=== PATIENT | female | born 1965 | race Caucasian/White ===

== ENCOUNTER 2017-07-13 14:03 | Emergency (ER) | payer OTHER ==
[~2017-07-13] VITALS: Ht 165.1 cm; Wt 84.0 kg
[~2017-07-13 14:03] MED LIST: CYCL-36 PO; DICL75 PO; ESTR1TAB12 PO; LEXA5TAB PO; MEDR2.5T19 PO
[2017-07-13 14:45] VITALS: BP 141/78; PULSE 91; RESP 16; TEMP 98.5; O2SAT 96
[2017-07-13] MEDS ORDERED: MEDR5TAB3 PO (15:55)
[2017-07-13] MEDS ORDERED: ESTR1 PO (15:55)
[2017-07-13 16:08] LABS: BILIRUBIN, URINE NEG (NEG); BLOOD, URINE TRACE (NEG); GLUCOSE,URINE NEG (NEG); KETONE, URINE NEG (NEG); NITRITE,URINE NEG (NEG); URINE LEUKOCYTE ESTERASE NEG (NEG)
[2017-07-13] MEDS ORDERED: PRED50 PO (16:38)
--- NOTE | 2017-07-13 16:39 | PD ---
HPI . 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 Onset was last night. Pain is exacerbated by movement. She states that she has a couple of "pressure points" on her right lower extremity which are also painful. He states that she felt like this once before when she had ovarian cysts. She states that she has not recently been sexually active. She denies any urinary tract symptoms such as dysuria or urgency. She has not noted a vaginal discharge. PFSH Past Medical History Diminished Hearing: No Hypertension: Yes Reproductive: Yes Tetanus Vaccination: < 5 Years Influenza Vaccination: No ?: Not LMP: 08/2016 Past Surgical History Appendectomy: Yes Gynecologic Surgery: Yes Social History Alcohol Use: Yes Tobacco Use: Yes Substance Use: No Allergies-Medications (Allergen,Severity, Reaction): Coded Allergies: NSAIDS (Non-Steroidal Anti-Inflamma (Verified Adverse Reaction, Unknown, ) Reported Meds & Prescriptions Reported Meds & Active Scripts Active Prednisone 50 Mg Tab 50 Mg PO DAILY 5 Days Reported Medroxyprogesterone Acetate 5 Mg Tab 2.5 Mg PO DAILY Start day 21 Estrace (Estradiol) 1 Mg Tab 1 Mg PO DAILY Review of Systems Except as stated in HPI: all other systems reviewed are Neg Physical Exam Narrative GENERAL: Awake and alert and in no acute distress. SKIN: Warm and dry. HEAD: Normocephalic/atraumatic. EYES: Pupils are equal. Extraocular movements are intact. NECK: Normal range of motion. RESPIRATORY: Nonlabored respirations. ABDOMEN: Soft and nontender. : Benign pelvic exam, but speculum and bimanual. MUSCULOSKELETAL: Tender in the right groin with pain on flexion of the right hip. NEUROLOGICAL: Nonfocal. PSYCHIATRIC: Appropriate mood and affect. Data Data Last Documented VS Vital Signs Date Time Temp Pulse Resp B/P (MAP) Pulse Ox O2 Delivery O2 Flow Rate FiO2 07/13/17 14:45 98.5 91 16 141/78 (99) 96 Orders Orders Gc And Chlamydia Pcr (07/13/17 15:59) Wet Prep Profile (07/13/17 15:59) Urinalysis - C+S If Indicated (07/13/17 15:59) Ed Urine Pregnancytest Poc (07/13/17 15:59) Labs Laboratory Tests Test 07/13/17 15:50 07/13/17 16:25 Urine Color YELLOW Urine Turbidity CLEAR Urine pH 6.0 Urine Specific [place] 1.010 Urine Protein NEG mg/dL Urine Glucose (UA) NEG mg/dL Urine Ketones NEG mg/dL Urine Occult Blood TRACE Urine Nitrite NEG Urine Bilirubin NEG Urine Leukocyte Esterase NEG Urine RBC 0-3 /hpf Urine Squamous Epithelial Cells 0-5 /hpf Microscopic Urinalysis Comment CULT NOT INDICATED Clue Cells (Wet Prep) PRESENT Vaginal Trichomonas (Wet Prep) NONE SEEN Vaginal Yeast (Wet Prep) NONE SEEN MDM Medical Decision Making Medical Screen Exam Complete: Yes Emergency Medical Condition: Yes Differential Diagnosis Differential diagnosis includes ovarian cyst, PID, TOA, UTI, right hip arthritis or bursitis. Narrative Course Patient presented with chief complaint of pain in the right suprapubic area. However, on exam, it seems that her pain is really in the right groin. It is probably hip pain but could be pain in her iliopsoas. The pain definitely does not seem GI or . Patient reports that she cannot take nonsteroidal anti- inflammatory agents because of kidney issues. I will plan to treat her with prednisone. UA is negative for infection. HCG neg. wet prep>>clue cells I will treat her BV with Flagyl. Diagnosis Primary Impression: Right hip pain Additional Impression: Bacterial vaginosis Patient Instructions: Bacterial Vaginosis (DC), General Instructions, Hip Pain (ED) Additional Instructions: See your doctor when you get home for ongoing treatment. Med/Other Pt SpecificInfo: Prescription(s) given Scripts Metronidazole (Flagyl) 500 Mg Tab 500 MG PO BID for Infection for 7 Days, #14 TAB 0 Refills Prov: Rashmi Carreno MD 07/13/17 Prednisone (Prednisone) 50 Mg Tab 50 MG PO DAILY for 5 Days, #5 TAB 0 Refills Prov: Rashmi Carreno MD 07/13/17 Disposition: 01 DISCHARGE HOME Condition: Stable Rashmi Carreno MD Jul 13, 2017 16:39
[2017-07-13 16:40] LABS: URINE COLOR YELLOW (YELLW/STRAW)
[2017-07-13 16:41] LABS: SQUAMOUS EPITHELIAL CELL URINE 0-5 /hpf (0-5)
[2017-07-13 16:43] LABS: RBC, URINE 0-3 /hpf (0-3)
[2017-07-13] MEDS ORDERED: METR-1 PO (17:05)
[2017-07-13] MEDS ORDERED: DEXAMETHASONE SOD PHOS 20 MG/5 ML VIAL IM ONE (17:15)
== END 2017-07-13 17:30 | disposition home or self-care (01) ==
LOC: PHED 14:03
DX: N76.0 Acute vaginitis (principal); B96.89 Other specified bacterial agents as the cause of diseases classified elsewhere; M25.551 Pain in right hip; I10 Essential (primary) hypertension; Z72.0 Tobacco use
CPT/HCPCS: 81001; 84703; 87210; 87491; 87591; 96372; 99284; J1100